=== PATIENT | male | born 1975 | race Hispanic/Latino ===

== ENCOUNTER 2023-09-13 10:40 | Inpatient (IN) | payer OTHER ==
[~2023-09-13] VITALS: Ht 172.7 cm; Wt 81.6 kg
[2023-09-13] MEDS: ASPIRIN 325MG TAB PO ONE (11:11)
[2023-09-13 11:13] LABS: BASOPHILS # (AUTO) 0.01 K/uL (0.00-0.20); BASOPHILS % (AUTO) 0.1 % (0.0-5.0); EOSINOPHILS # (AUTO) 0.42 K/uL (0.00-0.70); EOSINOPHILS % (AUTO) 4.6 % (0.0-8.0); HEMATOCRIT 41.6 % (42-54); IMMATURE GRANULOCYTE ABSOLUTE 0.02 K/uL (0-1); LYMPHOCYTES # (AUTO) 0.6 K/uL (1.0-4.8); LYMPHOCYTES % (AUTO) 6.7 % (21.0-51.0); MEAN CORPUSCULAR HEMOGLOBIN 25.2 pg (27.0-33.0); MEAN CORPUSCULAR HGB CONC 33.2 g/dL (32.0-36.0); MEAN CORPUSCULAR VOLUME 76.1 fL (79-99); NEUTROPHILS % (AUTO) 77.4 % (40.0-77.0); PLATELET COUNT (AUTO) 342 K/uL (130-400); RED BLOOD CELL COUNT(AUTO) 5.47 MIL/uL (4.50-6.20)
[2023-09-13] MEDS: NITROGLYCERIN 0.4 MG SL TAB SL PRN (11:13)
[2023-09-13] MEDS: ENOXAPARIN SODIUM 40 MG/0.4 ML SYRINGE SQ ONE (11:14)
[2023-09-13 11:15] VITALS: PULSE 105; RESP 18
[2023-09-13] MEDS: ALBUTEROL 0.083% 2.5 MG/3 ML INH IH ONE (11:15)
[2023-09-13 11:25] LABS: CREATININE 1.1 mg/dL (0.5-1.5); POTASSIUM 3.7 mmol/L (3.5-5.1)
[2023-09-13 11:28] LABS: ALBUMIN 4.1 g/dL (3.5-5.0); BILIRUBIN,TOTAL 0.3 mg/dL (0.2-1.0); MAGNESIUM 1.8 mg/dL (1.80-2.40); TOTAL PROTEIN, SERUM 7.9 g/dL (6.0-8.3)
[2023-09-13 12:10] LABS: RAPID GROUP A STREP negative (NEGATIVE)
[2023-09-13 12:26] LABS: INFLUENZA TYPE A Negative For Type A (NEGATIVE); INFLUENZA TYPE B Negative For Type B (NEGATIVE)
[2023-09-13 12:46] LABS: COVID19 (SARS ANTIGEN RAPID) POSITIVE FOR SARS AG (NEGATIVE)
[2023-09-13] MEDS: CEFTRIAXONE 2GM VIAL IVPB ONE (13:12)
[2023-09-13] MEDS: FAMOTIDINE 20MG VIAL IV ONE (13:12)
[2023-09-13] MEDS: 0.9%NACL 1000ML 2,052 ML IV ONE (13:12)
[2023-09-13] MEDS: KETOROLAC 30MG VIAL (30MG/ML) IVP ONE (13:12)
[2023-09-13] MEDS: DEXAMETHASONE SOD PHOSPHATE 4 MG/ML 1ML VIAL IV ONE (13:13)
[2023-09-13] MEDS ORDERED: ONDANSETRON 4MG INJ IVP PRN ×2 (14:00)
[2023-09-13] MEDS ORDERED: ALBUTEROL 0.083% 2.5 MG/3 ML INH IH PRN (14:00)
[2023-09-13] MEDS ORDERED: MORPHINE 2 MG SYG IVP PRN (14:00)
[2023-09-13 14:14] VITALS: PULSE 102; RESP 20; O2SAT 98
[2023-09-13 14:31] LABS: INR 0.95 (0.85-1.15); PROTHROMBIN TIME 11.1 SEC (9.6-11.6)
[2023-09-13 14:33] LABS: % IRON SATURATION 7.3 % (30-44); PARTIAL THROMBOPLASTIN TIME 35.3 SEC (26.3-35.5)
[2023-09-13 14:35] LABS: HEMOGLOBIN A1C 5.7 % (4.0-6.0)
[2023-09-13] MEDS: METOCLOPRAMIDE 10 MG/2 ML VIAL IVP ONE (14:41)
[2023-09-13] MEDS: 0.9%NACL 1000ML 1,000 ML IV SCH (14:41)
[2023-09-13 15:02] LABS: MAGNESIUM 1.6 mg/dL (1.80-2.40); THYROID STIMULATING HORMONE 0.33 uIU/mL (0.36-3.74)
[2023-09-13 15:12] LABS: APPEARANCE,URINE CLEAR (CLEAR); BILIRUBIN,URINE NEGATIVE (NEGATIVE); COLOR,URINE LIGHT-YELLOW (YELLOW); GLUCOSE, URINE (UA) NEGATIVE (NEGATIVE); KETONES,URINE NEGATIVE (NEGATIVE); LEUKOCYTE ESTERASE ,URINE NEGATIVE Leu/uL (NEGATIVE); NITRATE,URINE NEGATIVE (NEGATIVE); OCCULT BLOOD,URINE NEGATIVE (NEGATIVE); PH,URINE 5.5 (5.0-8.0); PROTEIN,URINE 10 mg/dL (NEGATIVE); UROBILINOGEN,URINE 0.2 mg/dL (0.2-1.0)
[2023-09-13 15:17] LABS: ADD UA MICROSCOPIC YES
[2023-09-13 15:19] LABS: AMPHET/METH SCREEN,URINE NEGATIVE (NEGATIVE); BARBITURATE SCREEN, URINE NEGATIVE (NEGATIVE); BENZODIAZEPINES SCREEN,URINE NEGATIVE (NEGATIVE); CANNABINOID SCREEN,URINE POSITIVE (NEGATIVE); COCAINE SCREEN,URINE NEGATIVE (NEGATIVE); MUCUS,URINE MOD LPF (None Seen); OPIATE SCREEN,URINE NEGATIVE (NEGATIVE); PHENCYCLIDINE SCREEN,URINE NEGATIVE (NEGATIVE); RBC,URINE 0-1 /HPF (0-1); SQUAMOUS EPITHELIAL CELL,UR RARE /HPF (0-2)
[2023-09-13] MEDS: GUAIFENESIN-DM 200/20 MG 10 ML PO PRN (15:29)
[2023-09-13] MEDS ORDERED: POTASSIUM CHLORIDE 10% ELIXIR 20 MEQ/15 ML UDCUP PO PRN (16:00)
[2023-09-13] MEDS ORDERED: POTASSIUM CHLORIDE 20MEQ/100ML 100 ML IV PRN ×2 (16:00)
[2023-09-13 18:06] VITALS: BP 101/70; PULSE 92; RESP 18
[2023-09-13] MEDS: BUDESONIDE 0.5 MG/2 ML INH IH SCH (18:51)
[2023-09-13 18:57] VITALS: PULSE 92; RESP 18
[2023-09-13 19:45] VITALS: O2SAT 99
[2023-09-13 19:49] LABS: CREATINE KINASE, TOTAL 48 U/L (21-232)
[2023-09-13 20:00] VITALS: BP 96/64; PULSE 74; RESP 20
[2023-09-13] MEDS: FAMOTIDINE 20MG VIAL IV SCH (23:52)
[2023-09-14] VITALS (12 sets, daily range): BP systolic 102–120; BP diastolic 61–71; PULSE 82–102; RESP 17–20; TEMP 98.6; O2SAT 98–100
[2023-09-14 01:18] LABS: CREATINE KINASE, TOTAL 46 U/L (21-232)
[2023-09-14] MEDS: MAGNESIUM 2GM PREMIX 50ML 50 ML IV PRN (01:46)
[2023-09-14 05:02] LABS: HEMATOCRIT 33.2 % (42-54); IMMATURE GRANULOCYTE ABSOLUTE 0.02 K/uL (0-1); LYMPHOCYTES # (AUTO) 0.8 K/uL (1.0-4.8); LYMPHOCYTES % (AUTO) 11.8 % (21.0-51.0); MEAN CORPUSCULAR HEMOGLOBIN 25.5 pg (27.0-33.0); MEAN CORPUSCULAR HGB CONC 33.4 g/dL (32.0-36.0); MEAN CORPUSCULAR VOLUME 76.1 fL (79-99); MONOCYTES # (AUTO) 1.2 K/uL (0.1-1.0); MONOCYTES % (AUTO) 17.5 % (3.0-13.0); NEUTROPHILS # (AUTO) 4.7 K/uL (1.8-7.7); NEUTROPHILS % (AUTO) 70.4 % (40.0-77.0); PLATELET COUNT (AUTO) 273 K/uL (130-400); RED BLOOD CELL COUNT(AUTO) 4.36 MIL/uL (4.50-6.20); RED CELL DISTRIBUTION WIDTH 14.2 % (11.0-15.5); WHITE BLOOD COUNT (AUTO) 6.6 K/uL (4.8-10.8)
[2023-09-14 05:26] LABS: ALBUMIN 3.3 g/dL (3.5-5.0); BILIRUBIN,TOTAL 0.1 mg/dL (0.2-1.0); CREATININE 0.9 mg/dL (0.5-1.5); MAGNESIUM 2.6 mg/dL (1.80-2.40); POTASSIUM 3.5 mmol/L (3.5-5.1); TOTAL PROTEIN, SERUM 6.5 g/dL (6.0-8.3)
[2023-09-14] MEDS: KCL 20 MEQ ERTAB PO PRN (05:37)
[2023-09-14] MEDS: CEFTRIAXONE 2GM VIAL IVPB SCH (09:30)
[2023-09-14] MEDS: ENOXAPARIN SODIUM 40 MG/0.4 ML SYRINGE SQ SCH (09:31)
[2023-09-14] MEDS: ACETAMINOPHEN 500 MG TABLET PO PRN (12:36)
[2023-09-15] VITALS (10 sets, daily range): BP systolic 97–120; BP diastolic 54–79; PULSE 71–90; RESP 16–21; O2SAT 98–100
[2023-09-16] VITALS (9 sets, daily range): BP systolic 100–112; BP diastolic 66–75; PULSE 68–83; RESP 18; O2SAT 98–100
[2023-09-16 06:19] LABS: BASOPHILS # (AUTO) 0.01 K/uL (0.00-0.20); BASOPHILS % (AUTO) 0.3 % (0.0-5.0); EOSINOPHILS # (AUTO) 0.03 K/uL (0.00-0.70); EOSINOPHILS % (AUTO) 0.8 % (0.0-8.0); HEMATOCRIT 38.4 % (42-54); LYMPHOCYTES # (AUTO) 2.7 K/uL (1.0-4.8); LYMPHOCYTES % (AUTO) 71.5 % (21.0-51.0); MEAN CORPUSCULAR HEMOGLOBIN 25.7 pg (27.0-33.0); MEAN CORPUSCULAR HGB CONC 33.3 g/dL (32.0-36.0); MEAN CORPUSCULAR VOLUME 77.1 fL (79-99); MONOCYTES # (AUTO) 0.6 K/uL (0.1-1.0); MONOCYTES % (AUTO) 14.9 % (3.0-13.0); NEUTROPHILS # (AUTO) 0.5 K/uL (1.8-7.7); NEUTROPHILS % (AUTO) 12.5 % (40.0-77.0); PLATELET COUNT (AUTO) 274 K/uL (130-400); RED BLOOD CELL COUNT(AUTO) 4.98 MIL/uL (4.50-6.20); RED CELL DISTRIBUTION WIDTH 14.3 % (11.0-15.5); WHITE BLOOD COUNT (AUTO) 3.8 K/uL (4.8-10.8)
[2023-09-16 06:38] LABS: ALBUMIN 3.5 g/dL (3.5-5.0); BILIRUBIN,TOTAL 0.2 mg/dL (0.2-1.0); POTASSIUM 3.7 mmol/L (3.5-5.1); TOTAL PROTEIN, SERUM 7.1 g/dL (6.0-8.3)
[2023-09-17] VITALS: BP 111/81; PULSE 75; RESP 20
[2023-09-17 04:00] VITALS: BP 111/69; PULSE 66; RESP 18
[2023-09-17 06:25] VITALS: PULSE 76; RESP 18; O2SAT 100
[2023-09-17 06:26] VITALS: PULSE 76; RESP 18
[2023-09-17 07:50] VITALS: O2SAT 98
[2023-09-17 08:00] VITALS: BP 121/77; PULSE 77; RESP 18
== END 2023-09-17 11:00 | disposition home or self-care (01) | DRG 871 ==
LOC: EDH 10:40 → EDHIP 10:41 → 4AH 16:57
PROVIDERS: ADMIT Internal Medicine; ATTEND Internal Medicine
DX: A41.89 Other specified sepsis (principal); U07.1 COVID-19; J20.8 Acute bronchitis due to other specified organisms; E86.0 Dehydration; K21.9 Gastro-esophageal reflux disease without esophagitis; F17.210 Nicotine dependence, cigarettes, uncomplicated; Z82.49 Family history of ischemic heart disease and other diseases of the circulatory system; Z90.49 Acquired absence of other specified parts of digestive tract
CPT/HCPCS: 36415; 71045; 80053; 80305; 81001; 82550; 82728; 82948; 83036; 83540; 83550; 83605; 83615; 83735; 84145; 84439; 84443; 84481; 84484; 85025; 85378; 85610; 85651; 85730; 86140; 86850; 86900; 86901; 87040; 87426; 87804; 87880; 93005; 93306; 94640; 94664; G0378; J0696; J1100; J1650; J1885; J2765; J3475; J3490; J7030